=== PATIENT | male | born 1975 | race Caucasian/White ===

== ENCOUNTER 2021-01-24 20:24 | Emergency (ER) | payer OTHER ==
[2021-01-24 20:54] LABS: HEMOGLOBIN 12.4 gm/dl (14.0-17.5); RED BLOOD COUNT 4.5 M/UL (4.20-5.50); WHITE BLOOD COUNT 12.9 K/UL (4.5-11.0)
[2021-01-24 21:11] LABS: BUN/CREATININE RATIO 16 (0-10)
[2021-01-24] MEDS ORDERED: ZOFRAN ODT 4 MG4 MG PO (23:35)
== END 2021-01-24 23:45 | disposition home or self-care (01) ==
LOC: ER1 20:24
PROVIDERS: Physician Assistant
DX: R10.32 Left lower quadrant pain (principal); R11.2 Nausea with vomiting, unspecified; E66.9 Obesity, unspecified; I51.9 Heart disease, unspecified; Z87.442 Personal history of urinary calculi
CPT/HCPCS: 80053; 81001; 83690; 85025; 87086; 93005; 96374; 99284; J2405; Q9967

== ENCOUNTER 2021-01-26 15:31 | Emergency (ER) | payer OTHER ==
[~2021-01-26 15:31] MED LIST: ZOFRAN ODT 4 MG4 MG PO
== END 2021-01-26 19:20 | disposition left against medical advice (07) ==
LOC: ER1 15:31
DX: Z53.21 Procedure and treatment not carried out due to patient leaving prior to being seen by health care provider (principal)